=== PATIENT | female | born 1950 | race Caucasian/White ===

== ENCOUNTER 2021-02-27 08:40 | Outpatient (REF) | payer MEDICARE, SELFPAY ==
[2021-02-27 11:50] LABS: Alanine Aminotransferase 12 U/L (0-31); Albumin Level 4.4 g/dL (3.5-5.0); Alkaline Phosphatase 87 U/L (39-117); Anion Gap 12 (12-20); Aspartate Amino Transferase 20 U/L (5-31); Bilirubin Total 0.9 mg/dL (0.0-1.0); Blood Urea Nitrogen 17 mg/dL (9-16); Calcium 9.1 mg/dL (8.4-10.2); Carbon Dioxide 30 mmol/L (22-29); Chloride 103 mmol/L (96-108); Cholesterol 274 mg/dL; Estimated Glomerular Filt Rate 52; Glucose Fasting 101 mg/dL (60-99); HDL Cholesterol 69 mg/dL; LDL Cholesterol Calculated 190 mg/dl; Potassium 4.5 mmol/L (3.3-5.1); Sodium 140 mmol/L (135-145); Triglycerides 76 mg/dL
[2021-02-27 12:14] LABS: Free T4 (Free Thyroxine) 1.14 ng/dL (0.71-1.85); Thyroid Stimulating Hormone 3.59 uIU/mL (0.32-4.0)
== END 2021-02-27 08:41 | disposition home or self-care (01) ==
LOC: HO.MANLDS 08:40
PROVIDERS: PCP Internal Medicine; Visit Provider Internal Medicine
DX: E78.00 Pure hypercholesterolemia, unspecified (principal); I10 Essential (primary) hypertension; E03.9 Hypothyroidism, unspecified
CPT/HCPCS: 36415; 80053; 80061; 84439; 84443

== ENCOUNTER 2021-08-28 09:37 | Outpatient (REF) | payer MEDICARE, SELFPAY ==
[2021-08-28 11:32] LABS: Alanine Aminotransferase 14 U/L (0-31); Albumin Level 4.3 g/dL (3.5-5.0); Alkaline Phosphatase 87 U/L (39-117); Anion Gap 15 (12-20); Aspartate Amino Transferase 22 U/L (5-31); Bilirubin Total 0.9 mg/dL (0.0-1.0); Blood Urea Nitrogen 14 mg/dL (9-16); Calcium 9.1 mg/dL (8.4-10.2); Carbon Dioxide 25 mmol/L (22-29); Chloride 105 mmol/L (96-108); Cholesterol 204 mg/dL; Estimated Glomerular Filt Rate 52; Glucose Fasting 106 mg/dL (60-99); HDL Cholesterol 66 mg/dL; LDL Cholesterol Calculated 122 mg/dl; Potassium 4.4 mmol/L (3.3-5.1); Sodium 141 mmol/L (135-145); Total Protein 6.8 g/dL (6.5-8.0); Triglycerides 80 mg/dL
[2021-08-28 11:54] LABS: Free T4 (Free Thyroxine) 1.27 ng/dL (0.71-1.85)
== END 2021-08-28 09:38 | disposition home or self-care (01) ==
LOC: HO.MANLDS 09:37
PROVIDERS: PCP Internal Medicine; Visit Provider Internal Medicine
DX: E78.00 Pure hypercholesterolemia, unspecified (principal); I10 Essential (primary) hypertension; E03.9 Hypothyroidism, unspecified; R73.01 Impaired fasting glucose
CPT/HCPCS: 36415; 80053; 80061; 84439; 84443

== ENCOUNTER 2022-01-24 09:17 | Outpatient (REF) | payer MEDICARE, SELFPAY ==
[2022-01-24 11:15] LABS: Estimated Average Glucose 103 mg/dL; Hemoglobin A1c % 5.2 %
[2022-01-24 11:32] LABS: Alanine Aminotransferase 20 U/L (0-31); Albumin Level 4.3 g/dL (3.5-5.0); Alkaline Phosphatase 82 U/L (39-117); Anion Gap 11 (12-20); Aspartate Amino Transferase 20 U/L (5-31); Blood Urea Nitrogen 14 mg/dL (9-16); Calcium 9.2 mg/dL (8.4-10.2); Carbon Dioxide 28 mmol/L (22-29); Chloride 102 mmol/L (96-108); Cholesterol 203 mg/dL; Estimated Glomerular Filt Rate 51; Glucose Fasting 98 mg/dL (60-99); HDL Cholesterol 66 mg/dL; LDL Cholesterol Calculated 121 mg/dl; Potassium 4.2 mmol/L (3.3-5.1); Sodium 137 mmol/L (135-145); Total Protein 6.8 g/dL (6.5-8.0); Triglycerides 84 mg/dL
[2022-01-24 11:39] LABS: Free T4 (Free Thyroxine) 1.22 ng/dL (0.71-1.85)
== END 2022-01-24 09:18 | disposition home or self-care (01) ==
LOC: HO.MANLDS 09:17
PROVIDERS: PCP Internal Medicine; Visit Provider Internal Medicine
DX: E78.00 Pure hypercholesterolemia, unspecified (principal); I10 Essential (primary) hypertension; E03.9 Hypothyroidism, unspecified; R73.01 Impaired fasting glucose
CPT/HCPCS: 36415; 80053; 80061; 83036; 84439; 84443

== ENCOUNTER 2022-05-04 09:06 | Outpatient (REF) | payer MEDICARE, SELFPAY ==
[2022-05-04 11:23] LABS: Estimated Average Glucose 103 mg/dL; Hemoglobin A1c % 5.2 %
[2022-05-04 11:40] LABS: Alanine Aminotransferase 15 U/L (0-31); Albumin Level 4.5 g/dL (3.5-5.0); Alkaline Phosphatase 95 U/L (39-117); Anion Gap 13 (12-20); Aspartate Amino Transferase 22 U/L (5-31); Bilirubin Total 0.5 mg/dL (0.0-1.0); Blood Urea Nitrogen 12 mg/dL (9-16); Calcium 9.2 mg/dL (8.4-10.2); Carbon Dioxide 26 mmol/L (22-29); Chloride 103 mmol/L (96-108); Cholesterol 214 mg/dL; Estimated Glomerular Filt Rate 40; Glucose Fasting 111 mg/dL (60-99); HDL Cholesterol 65 mg/dL; LDL Cholesterol Calculated 132 mg/dl; Potassium 4.4 mmol/L (3.3-5.1); Sodium 138 mmol/L (135-145); Total Protein 7.1 g/dL (6.5-8.0); Triglycerides 89 mg/dL
[2022-05-04 11:46] LABS: Free T4 (Free Thyroxine) 1.27 ng/dL (0.71-1.85); Thyroid Stimulating Hormone 2.22 uIU/mL (0.32-4.0)
== END 2022-05-04 09:07 | disposition home or self-care (01) ==
LOC: HO.MANLDS 09:06
PROVIDERS: Visit Provider Internal Medicine
DX: E78.00 Pure hypercholesterolemia, unspecified (principal); I10 Essential (primary) hypertension; E03.9 Hypothyroidism, unspecified; R73.01 Impaired fasting glucose
CPT/HCPCS: 36415; 80053; 80061; 83036; 84439; 84443

== ENCOUNTER 2022-12-24 | Outpatient (REF) | payer MEDICARE, SELFPAY ==
[2022-12-24 10:25] LABS: MANUAL DIFF FLAG NO
[2022-12-24 10:28] LABS: Basophils Absolute Auto 0.1 X10*3/uL (0.0-0.2); Basophils Percent Auto 1.1 % (0-2); Eosinophils Absolute Auto 0.1 X10*3/uL (0.0-0.4); Eosinophils Percent Auto 1.8 % (0-4); Hematocrit 41.5 % (37.0-47.0); Imm Gran Abs Auto 0.02 X10*3/uL (0.00-0.03); Imm Gran Pct Auto 0.5 % (0.0-0.4); Lymphocytes Absolute Auto 1.1 X10*3/uL (1.2-4.9); Lymphocytes Percent Auto 25.7 % (20-40); Mean Corpuscular HGB Conc 33.7 g/dl (31.0-35.0); Mean Corpuscular Hemoglobin 33.2 pg (27.0-33.0); Mean Corpuscular Volume 98.3 fL (80.0-98.0); Mean Platelet Volume 9.5 fL (9.4-12.3); Monocytes Absolute Auto 0.6 X10*3/uL (0.1-1.2); Monocytes Percent Auto 13.1 % (2-11); Neutrophils Absolute Auto 2.5 x10*3/uL (2.0-8.3); Neutrophils Percent Auto 57.8 % (45-73); Platelet Count 236 X10*3/uL (160-400); Red Blood Count 4.22 X10*6/uL (4.20-5.50); White Blood Count 4.4 X10*3/uL (4.8-10.8)
[2022-12-24 11:07] LABS: Estimated Average Glucose 111 mg/dL; Hemoglobin A1c % 5.5 %
[2022-12-24 11:31] LABS: Alanine Aminotransferase 13 U/L (0-31); Albumin Level 4.3 g/dL (3.5-5.0); Alkaline Phosphatase 80 U/L (39-117); Anion Gap 10 (12-20); Aspartate Amino Transferase 16 U/L (5-31); Bilirubin Total 1.2 mg/dL (0.0-1.0); Blood Urea Nitrogen 18 mg/dL (9-16); Calcium 9.3 mg/dL (8.4-10.2); Carbon Dioxide 30 mmol/L (22-29); Chloride 103 mmol/L (96-108); Cholesterol 218 mg/dL; Estimated Glomerular Filt Rate 52; Glucose Fasting 101 mg/dL (60-99); HDL Cholesterol 74 mg/dL; LDL Cholesterol Calculated 126 mg/dl; Potassium 4.2 mmol/L (3.3-5.1); Sodium 139 mmol/L (135-145); Total Protein 6.8 g/dL (6.5-8.0); Triglycerides 91 mg/dL
[2022-12-24 11:50] LABS: Vitamin D 25-OH Total 38.3 ng/mL (>30)
== END 2022-12-24 00:01 ==
LOC: HO.MANLDS
PROVIDERS: Visit Provider Internal Medicine
DX: E78.00 Pure hypercholesterolemia, unspecified (principal); R73.01 Impaired fasting glucose
CPT/HCPCS: 36415; 80053; 80061; 82306; 83036; 85025

== ENCOUNTER 2023-01-22 10:04 | Outpatient (REF) | payer MEDICARE, SELFPAY ==
[2023-01-22 13:43] LABS: Free T4 (Free Thyroxine) 1.31 ng/dL (0.71-1.85); Thyroid Stimulating Hormone 2.19 uIU/mL (0.32-4.0)
== END 2023-01-22 10:05 | disposition home or self-care (01) ==
LOC: HO.MANLDS 10:04
PROVIDERS: Visit Provider Internal Medicine
DX: E03.9 Hypothyroidism, unspecified (principal)
CPT/HCPCS: 36415; 84439; 84443

== ENCOUNTER 2023-07-02 08:57 | Outpatient (REF) | payer MEDICARE, OTHER, SELFPAY ==
[2023-07-02 13:27] LABS: MANUAL DIFF FLAG NO
[2023-07-02 13:37] LABS: Basophils Absolute Auto 0.1 X10*3/uL (0.0-0.2); Basophils Percent Auto 1.4 % (0-2); Eosinophils Absolute Auto 0.1 X10*3/uL (0.0-0.4); Eosinophils Percent Auto 1.6 % (0-4); Hematocrit 41.6 % (37.0-47.0); Hemoglobin 13.6 g/dl (12.0-16.0); Imm Gran Abs Auto 0.01 X10*3/uL (0.00-0.03); Imm Gran Pct Auto 0.2 % (0.0-0.4); Lymphocytes Absolute Auto 0.9 X10*3/uL (1.2-4.9); Lymphocytes Percent Auto 21.1 % (20-40); Mean Corpuscular HGB Conc 32.7 g/dl (31.0-35.0); Mean Corpuscular Hemoglobin 32.5 pg (27.0-33.0); Mean Corpuscular Volume 99.3 fL (80.0-98.0); Mean Platelet Volume 9.6 fL (9.4-12.3); Monocytes Absolute Auto 0.5 X10*3/uL (0.1-1.2); Monocytes Percent Auto 11.5 % (2-11); Neutrophils Absolute Auto 2.7 x10*3/uL (2.0-8.3); Neutrophils Percent Auto 64.2 % (45-73); Platelet Count 256 X10*3/uL (160-400); Red Blood Count 4.19 X10*6/uL (4.20-5.50); Red Cell Distribution Width 12.2 % (11.0-16.0); White Blood Count 4.3 X10*3/uL (4.8-10.8)
[2023-07-02 14:35] LABS: Estimated Average Glucose 103 mg/dL; Hemoglobin A1C 117.8779 umol/L; Hemoglobin A1c % 5.2 % (<6.0)
[2023-07-02 15:08] LABS: Alanine Aminotransferase 12 U/L (0-31); Albumin Level 4.3 g/dL (3.5-5.0); Alkaline Phosphatase 76 U/L (39-117); Anion Gap 10 (12-20); Aspartate Amino Transferase 21 U/L (5-31); Bilirubin Total 0.8 mg/dL (0.0-1.0); Blood Urea Nitrogen 15 mg/dL (9-16); Calcium 9.6 mg/dL (8.4-10.2); Carbon Dioxide 29 mmol/L (22-29); Chloride 105 mmol/L (96-108); Cholesterol 209 mg/dL (<200); Estimated Glomerular Filt Rate 53; Glucose Random 99 mg/dL (60-115); HDL Cholesterol 72 mg/dL (>40); LDL Cholesterol Calculated 120 mg/dL (<100); Potassium 4.3 mmol/L (3.3-5.1); Sodium 140 mmol/L (135-145); Triglycerides 88 mg/dL (<150)
[2023-07-02 15:09] LABS: Vitamin D 25-OH Total 56.1 ng/mL (>30)
== END 2023-07-02 08:58 | disposition home or self-care (01) ==
LOC: HO.MANLDS 08:57
PROVIDERS: Visit Provider Internal Medicine
DX: E78.00 Pure hypercholesterolemia, unspecified (principal); R73.01 Impaired fasting glucose; E55.9 Vitamin D deficiency, unspecified
CPT/HCPCS: 36415; 80053; 80061; 82306; 83036; 85025

== ENCOUNTER 2023-12-30 08:58 | Outpatient (REF) | payer MEDICARE, OTHER, SELFPAY ==
[2023-12-30 13:10] LABS: MANUAL DIFF FLAG NO
[2023-12-30 13:46] LABS: Basophils Absolute Auto 0.1 X10*3/uL (0.0-0.2); Basophils Percent Auto 0.9 % (0-2); Eosinophils Absolute Auto 0.2 X10*3/uL (0.0-0.4); Eosinophils Percent Auto 3.2 % (0-4); Hematocrit 42.4 % (37.0-47.0); Hemoglobin 13.9 g/dl (12.0-16.0); Imm Gran Abs Auto 0.01 X10*3/uL (0.00-0.03); Imm Gran Pct Auto 0.2 % (0.0-0.4); Lymphocytes Percent Auto 18.1 % (20-40); Mean Corpuscular HGB Conc 32.8 g/dl (31.0-35.0); Mean Corpuscular Hemoglobin 32.8 pg (27.0-33.0); Mean Platelet Volume 9.7 fL (9.4-12.3); Monocytes Absolute Auto 0.6 X10*3/uL (0.1-1.2); Monocytes Percent Auto 10.6 % (2-11); Neutrophils Absolute Auto 3.8 x10*3/uL (2.0-8.3); Platelet Count 235 X10*3/uL (160-400); Red Blood Count 4.24 X10*6/uL (4.20-5.50); Red Cell Distribution Width 12.6 % (11.0-16.0); White Blood Count 5.6 X10*3/uL (4.8-10.8)
[2023-12-30 14:36] LABS: Alanine Aminotransferase 18 U/L (0-31); Albumin Level 4.3 g/dL (3.5-5.0); Alkaline Phosphatase 84 U/L (39-117); Anion Gap 11 (12-20); Aspartate Amino Transferase 21 U/L (5-31); Bilirubin Total 0.7 mg/dL (0.0-1.0); Blood Urea Nitrogen 18 mg/dL (9-16); Calcium 9.5 mg/dL (8.4-10.2); Carbon Dioxide 28 mmol/L (22-29); Chloride 105 mmol/L (96-108); Cholesterol 226 mg/dL (<200); Estimated Glomerular Filt Rate 57; Glucose Random 101 mg/dL (60-115); HDL Cholesterol 75 mg/dL (>40); LDL Cholesterol Calculated 133 mg/dL (<100); Potassium 4.4 mmol/L (3.3-5.1); Sodium 140 mmol/L (135-145); Thyroid Stimulating Hormone 2.06 uIU/mL (0.32-4.0); Total Protein 7.3 g/dL (6.5-8.0); Triglycerides 91 mg/dL (<150); Vitamin D 25-OH Total 39.1 ng/mL (>30)
== END 2023-12-30 08:59 | disposition home or self-care (01) ==
LOC: HO.MANLDS 08:58
PROVIDERS: Visit Provider Internal Medicine
DX: I10 Essential (primary) hypertension (principal); E78.00 Pure hypercholesterolemia, unspecified; E03.9 Hypothyroidism, unspecified
CPT/HCPCS: 36415; 80053; 80061; 82306; 84443; 85025

== ENCOUNTER 2025-03-24 07:56 | Outpatient (REF) | payer MEDICARE, OTHER, SELFPAY ==
[2025-03-24 14:03] LABS: Thyroid Stimulating Hormone 0.48 uIU/mL (0.32-4.0)
== END 2025-03-24 07:57 | disposition home or self-care (01) ==
LOC: HO.MANLDS 07:56
PROVIDERS: Visit Provider Internal Medicine
DX: E03.9 Hypothyroidism, unspecified (principal)
CPT/HCPCS: 36415; 84443

== ENCOUNTER 2025-03-31 16:01 | Outpatient (REF) | payer MEDICARE, OTHER, SELFPAY ==
[2025-04-01 17:29] LABS: Lyme Abs Screen <0.90 index
[2025-04-01 21:58] LABS: A. Phagocytphilium DNA,RT-PCR NOT DETECTED (NOT DETECTED); Babesia Microti DNA, RT-PCR NOT DETECTED (NOT DETECTED); Borrelia Miyamotoi,DNA RT-PCR NOT DETECTED (NOT DETECTED); E.Chaffeensis DNA RT-PCR NOT DETECTED (NOT DETECTED); Lyme(Borrelia ssp)DNA RT-PCR NOT DETECTED (NOT DETECTED)
== END 2025-03-31 16:02 | disposition home or self-care (01) ==
LOC: HO.MANLDS 16:01
PROVIDERS: Visit Provider Internal Medicine
DX: T14.8XXA Other injury of unspecified body region, initial encounter (principal); W57.XXXA Bitten or stung by nonvenomous insect and other nonvenomous arthropods, initial encounter; Y93.9 Activity, unspecified; Y92.9 Unspecified place or not applicable; Y99.9 Unspecified external cause status
CPT/HCPCS: 36415; 86617; 86618; 87468; 87469; 87478; 87484; 87798

== ENCOUNTER 2025-07-28 19:10 | Outpatient (REF) | payer MEDICARE, OTHER, SELFPAY ==
[2025-07-28 19:13] LABS: MANUAL DIFF FLAG NO
--- OUTSIDE RECORDS SUMMARY | 2025-07-28 19:13 | XMS_ITS | Encounter Summary ---
Author Organization [facility] Address [address] [place] [address] [place] [phone] Phone Care Team Providers Care Annual Giving Director Name Role Phone Benjy Charlton Primary Care Provider [phone] Jessica Lim MD Unavailable [phone] Zoltan Benjy Horta DO Unavailable Encounter Details Date Type Department Care Team (Latest Contact Info) Description 08/26/2018 Transcribe Orders [facility] [address] [place] [id number] Fito Andersen MD [address] [place] [id number] [email or web address] Myxedema heart disease (Primary Dx) Social History Tobacco Use Types Packs/Day Years Used Date Smoking Tobacco: Never Smokeless Tobacco: Never Comments No Sex and Gender Information Value Date Recorded Sex Assigned at Not on file Legal Sex Female 10:05 PM EDT Gender Identity Not on file Sexual Orientation Not on file documented as of this encounter Plan of Treatment Upcoming Encounters Date Type Department Care Team (Late st Contact Info) Description 04/20/2025 Procedure Pass [address] [address] 04/11/2026 9:15 AM EDT Appointment [address] [address] Jessica Lim MD [address] [place] [id number] 04/19/2026 10:00 AM EDT Office Visit [facility] [address] [place] [address] Jessica Lim MD [address] [place] [id number] documented as of this encounter Results * TSH (08/26/2018 10:01 AM EDT) TSH 2.91 0.27 - 4.20 uIU/mL [facility] Blood 08/26/2018 10:0 1 AM EDT 08/26/2018 10:05 AM EDT us Fito Andersen MD LAB BLOOD ORDERABLES Final Result [address] [address] documented in this encounter Visit Diagnoses Diagnosis Myxedema heart disease- Primary Unspecified hypothyroidism documented in this encounter Additional Health Concerns Infection Onset Date Last Indicated Resolved Time CoV-Exposed Comment:Recent close contact 11/07/2020 11/07/2020 11/21/2020 1:24 AM EST documented as of this encounter Care Teams Annual Giving Director Relationship Specialty Start Date End Date Benjy Charlton DO PCP - General 08/15/17 Jessica Lim MD [address] [place] [address] Primary Oncologist Medical Oncology 03/10/18 Benjy Charlton DO [address] [place] [id number] Insurance Assigned Provider 08/06/20 09/07/23 documented as of this encounter Additional Source Comments The information contained in this document represents components of the legal health record. It is not the complete legal health record.[facility]
--- OUTSIDE RECORDS SUMMARY | 2025-07-28 19:13 | XMS_ITS | Data Portability ---
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 REVIEW OF PRIOR EXTERNAL NOTES/RESULTS, ORDERING OF TEST(S) CATEGORY 2. 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 MODERATE MUST MEET 2 OUT OF 3 ELEMENTS: PROBLEMS, DATA OR RISK ELEMENT 1: PROBLEMS ADDRESSED 1 OR MORE CHRONIC ILLNESS WITH EXACERBATION OR 2 OR MORE STABLE CHRONIC ILLNESSES OR 1 UNDIAGNOSED NEW PROBLEM OR 1 ACUTE ILLNESS W/SYMPTOMS OR 1 ACUTE COMPLICATED INJURY ELEMENT 2: DATA MUST MEET 1 OF 3 CATEGORIES CATEGORY 1: REVIEW OF PRIOR EXTERNAL NOTES, REVIEW OF RESULTS, ORDERING OF EACH TEST, ASSESSMENT REQUIRING INDEPENDENT HISTORIAN OR CATEGORY 2: INDEPENDENT INTERPRETATION OF TESTS BY ANOTHER PHYSICIAN OR SPECIALIST OR CATEGORY 3: DISCUSSION OF MGT OR TEST INTERPRETATION W/EXTERNAL PHYSICIAN OR SPECIALIST ELEMENT 3: RISK RISK OF COMPLICATIONS AND/OR MORBIDITY OR MORTALITY OF PATIENT MANAGEMENT PROVIDER MUST THOROUGHLY DOCUMENT EACH ELEMENT THAT IS COVERED Not available 07/22/2024 12:15:49 01/13/2025 01/13/2025 [id number] [place] [id number]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 MODERATE MUST MEET 2 OUT OF 3 ELEMENTS: PROBLEMS, DATA OR RISK ELEMENT 1: PROBLEMS ADDRESSED 1 OR MORE CHRONIC ILLNESS WITH EXACERBATION OR 2 OR MORE STABLE CHRONIC ILLNESSES OR 1 UNDIAGNOSED NEW PROBLEM OR 1 ACUTE ILLNESS W/SYMPTOMS OR 1 ACUTE COMPLICATED INJURY ELEMENT 2: DATA MUST MEET 1 OF 3 CATEGORIES CATEGORY 1: REVIEW OF PRIOR EXTERNAL NOTES, REVIEW OF RESULTS, ORDERING OF EACH TEST, ASSESSMENT REQUIRING INDEPENDENT HISTORIAN OR CATEGORY 2: INDEPENDENT INTERPRETATION OF TESTS BY ANOTHER PHYSICIAN OR SPECIALIST OR CATEGORY 3: DISCUSSION OF MGT OR TEST INTERPRETATION W/EXTERNAL PHYSICIAN OR SPECIALIST ELEMENT 3: RISK RISK OF COMPLICATIONS AND/OR MORBIDITY OR MORTALITY OF PATIENT MANAGEMENT PROVIDER MUST THOROUGHLY DOCUMENT EACH ELEMENT THAT IS COVERED Not available 01/13/2025 15:05:23 03/31/2025 03/31/2025 Patient presente d to office today for their Medicare Annual Wellness Visit. Education was provided on healthy nutrition, including a diet rich in fruits and vegetables, minimizing simple carbohydrates, salt, and saturated fats. Encouraged regular cardiovascular exercise such as walking at least 30 minutes daily, 5 times per week. Emphasized preventive health measures and educated pt on fall prevention and community-based lifestyle interventions to help reduce health risks and promote healthy living. Not available 03/23/2025 14:18:15 Plan of Treatment Reminders Order Date Submit Date Provider Last Modified By Organization Details Last Modified Time Details Appointments FOLLOW UP 15 2024 01:45P M DR KELLY Not available Not available Not available Lab lipid panel, blood 2024 025 [facility], [address] [place] [address], [place], [address], 03/31/2025 15:58:56 TSH + free T4, serum 2024 025 [facility], [address] [place] [address], [place], [address], 03/31/2025 15:59:32 ehrlichio sis + anaplasmo sis + babesiosi s + borrelia miyamotoi DNA panel, serum, plasma or blood 2024 025 [facility], [address] [place] [address], [address], 04/01/2025 20:47:08 lyme disease igg+igm, serum, reflex western blot 2024 025 [facility], [address] [place] [address], [id number], 04/02/2025 13:56:29 CBC w/ auto diff 2024 025 [facility], [address] [place] [address], [id number], 03/31/2025 15:58:56 CMP, serum or plasma 2024 025 [facility], [address] [place] [address], [id number], 03/31/2025 15:58:57 TSH, serum or plasma 2024 025 [facility], [address] [place] [address], [id number], 03/25/2025 12:15:13 TSH, serum or plasma 2024 025 [facility], [address] [place] [address], [id number], 03/25/2025 12:15:13 TSH + free T4, serum 2023 024 [facility], [address] [place] [address], [address], 01/10/2024 12:18:53 Referral hand surgeon referral 2023 024 velia Carroll MD, [address] [place] [address], [address], 04/10/2024 08:42:44 dermatolo gist referral 2023 024 velia Cho MD, [address], [place], [address], 04/10/2024 08:42:45 Procedures None recorded. Surgeries None recorded. Imaging MAMMO, screening , digital, bilateral 2024 [facility] (Screening Mammos, 6-Mos F-Up, Breast Procedures), [address] [place] [address], [address], 04/28/2025 08:43:17 bone density 2024 025 [facility] - Outpatient Imaging Central Scheduling (Not Breast), [address] [place] [address], [id number], 04/14/2025 09:22:38 XR, shoulder, 2 or more view 2023 024 [facility] Not available 07/29/2024 09:18:02 Medication Orders levothyro xine 88 mcg tablet 2024 025 [facility] #[id number], [address], [place], [id number], 01/13/2025 15:14:31 propranol ol ER 60 mg capsule,2 4 hr,extend ed release 2023 024 [facility] #08326, [address], [place], [id number], 04/07/2024 16:21:01 levothyro xine 75 mcg tablet 2023 025 [facility] #90285, [address], [place], [id number], 01/13/2025 15:10:07 simvastat in 10 mg tablet 2023 024 [facility] #39541, [address], [place], [id number], 01/10/2024 12:13:49 propranol ol ER 60 mg capsule,2 4 hr,extend ed release 2023 024 [facility] #64244, [address], [place], [id number], 01/10/2024 12:13:49 Patient TargetsNo targets recorded. Patient Instructions Encounter Date Encounter Id Patient Instructions Last Modified By Organization Details Last Modified Time 07/22/2024 [id number] hypothyroidism: care instructions Not available 07/22/2024 12:16:11 01/13/2025 [id number] prediabetes: car e instructions Not available 01/13/2025 15:14:25 high blood pressure: care instructions Not available 01/13/2025 15:14:25 learning about high blood pressure Not available 01/13/2025 15:14:25 hypothyroidism: care instructions Not available 01/13/2025 15:14:25 03/31/2025 [id number] tick bite: care instructions Not available 03/31/2025 15:57:30 advance care planning: care instructions Not available 03/31/2025 15:57:30 Discussed and explained advance directives such as standard forms to the . Face to face discussion lasted for a duration of ___ minutes. 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 [address], [address], 07/30/2024 21:29:22 09/15/20 24 09/14/2024 MRI, ben zuleika, w/o contr ast No observ ation record ed. [email or web address] [address], [place], [address], 09/18/2024 11:53:51 Result Notes None recorded. 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 145951327 Active 2017 Ayesha serrano [facility] 5 13:34:58 Impaired fasting glycemia 215890444 Completed 201707/08/2023 Ayesha serrano [facility] 5 13:34:58 Osteopen ia 032464997 Active 2017 Ayesha serrano [facility] 5 13:34:58 Hypercho lesterol emia 80664344 Active 2017 Ayesha serrano [facility] 5 13:34:58 Bunion 089971409 Active 2017 Ayesha serrano [facility] 5 13:35:06 Migraine 25815419 Active 2022 Ayesha serrano [facility] 5 13:35:06 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 749956486 Active 2022 Ayesha serrano [facility] 5 13:34:58 Raynaud' s disease 166738500 Active 2022 Ayesha serrano [facility] 5 13:34:58 Headache 25276159 [facility] 13:[facility]06 Impaired fasting glycemia 718294224 Active 2022 [facility] 5 13:34:58 Acute sinusiti s 11103659 Active 2023 [facility] 5 13:35:06 Acquired trigger finger of right middle finger 78109458361 9105 Active 2023 [facility] 5 13:34:58 Squamous cell carcinom a of skin 696120273 Active 2023 [facility] 5 13:34:58 Pain of right shoulder joint 75628875162 245833 Active 2023 [facility] 5 13:35:06 Cough 34564478 Active 2024 [facility] 5 13:35:06 Right rotator cuff syndrome 86441841615 9109 Active 2024 Benjy Kelly, DO [address] [place] [address], [phone] 5 15:04:49 Problem Notes None recorded. Medical Equipment None Reported. Allergies Allergen ID Allergen Name Allergen Category Reaction Reaction Severity Criticality Documentation Date Start Date Code Code System Note Provider Name and Address Organization Details Recorded Time 3211 etodolac medicatio n hives severe Not available 05/18/2019 45097 RxNorm Aarti Nicholson [facility] 9 13:42:49 3997 Macrobid medicatio n hives Not available Not available 05/25/2020 66554 1 RxNorm [facility] 0 10:26:05 3998 shellfish derived food,medi cation Not available Not available Not available 05/25/2020 Swell ing, throa t tight en[facility] 0 10:27:08 434 penicilli n V Not available Not available Not available Not available 01/01/2018 7984 RxNorm Aarti serrano [facility] 8 14:41:25 435 diflunisa l medicatio n Not available Not available Not available 01/01/2018 3393 RxNorm Aarti serrano [facility] Internal [facility] 8 14:41:54 Medications Name Sig Start Date Stop Date Status Note LastModified by Organization Details LastModified Time anastrozole 1 mg tablet 03/26 completed Not Available Not Available Not Available atorvastati n 10 mg tablet TAKE 1 TABLET BY MOUTH ONCE DAILY 03/06 completed Not Available Not Available Not Available azithromyci n 250 mg tablet TAKE 2 TABLETS (500 MG) BY ORAL ROUTE ONCE DAILY FOR 1 DAY THEN 1 TABLET (250 MG) BY ORAL ROUTE ONCE DAILY FOR 4 DAYS 01/13 completed Not Available Not Available Not Available benzonatate 200 mg capsule TAKE 1 CAPSULE BY MOUTH THREE TIMES DAILY FOR 10 DAYS NEEDED 01/13 completed Not Available Not Available Not Available meloxicam 15 mg tablet TAKE 1 TABLET BY MOUTH EVERY DAY AFTER MEALS 03/31 completed Not Available Not Available Not Available propranolol ER 60 mg capsule,24 hr,extended release TAKE 1 CAPSULE BY MOUTH EVERY DAY 2024 active Not Available Not Available Not Avai lable simvastatin 10 mg tablet TAKE 1 TABLET BY MOUTH EVERY DAY active Not Available Not Available No t Available sulfamethox azole 800 mg-trimetho prim 160 mg tablet 05/14 completed Not Available Not Available Not Available etodolac ER 500 mg tablet,exte nded release 24 hr Take 1 tablet every day by oral route for 10 days. 06/03 completed Not Available Not Available Not Available levothyroxi ne 75 mcg tablet TAKE 1 TABLET BY MOUTH EVERY DAY SATURDAY THROUGH SATURDAY TAKE ONE-HALF TABLET BY MOUTH ON 01/13 completed Not Available Not Available Not Available levothyroxi ne 88 mcg tablet TAKE 1 TABLET BY MOUTH EVERY DAY active Not Available Not Available No t Available levothyroxi ne 50 mcg tablet 03/26 completed Not Available Not Available Not Available erythromyci n 5 mg/gram (0.5 %) eye ointment APPLY 1/2 INCH IN LEFT EYE FOUR TIMES DAILY FOR 5 DAYS 12/31 completed Not Available Not Available Not Available oseltamivir 75 mg capsule 03/26 completed Not Available Not Available Not Available methylpredn isolone 4 mg tablets in a dose pack FOLLOW PACKAGE DIRECTION S 03/31 completed Not Available Not Available Not Available doxycycline hyclate 100 mg tablet TAKE 1 TABLET BY MOUTH TWICE DAILY FOR 14 DAYS 08/29 completed Not Available Not Available Not Available Vitamin D3 400 units daily active Not Available Not Available No t Available COVID-19 test specimen collection USE DIRECTED 09/04 completed Not Available Not Available Not Available Vitals Date Recorded Body height Body mass index (BMI) Body weight Heart rate Oxygen saturation Oxygen saturation in Arterial blood by Pulse oximetry Systolic And Diastolic Provider Name and Address Organization Details Last Updated DateTime 5 168.28 cm 28.8 kg/m2 96485.1 9 g 75 /min 98 % 98 % 156/92 mm[Hg] Ayesha Ortega [facility] 5 14:47:52 Date Recorded Body height Body mass index (BMI) Body weight Oxygen saturation Oxygen saturation in Arterial blood by Pulse oximetry Heart rate Systolic And Diastolic Provider Name and Address Organization Details Last Updated DateTime 5 168.28 cm 28.9 kg/m2 03900.4 2 g 98 % 98 % 84 /min 142/90 mm[Hg] Kassidy Montalvo [facility] 5 15:44:58 Date Recorded Body height Body mass index (BMI) Body weight Heart rate Oxygen saturation Oxygen saturation in Arterial blood by Pulse oximetry Systolic And Diastolic Provider Name and Address Organization Details Last Updated DateTime 4 168.28 cm 28.8 kg/m2 30216.6 3 g 80 /min 97 % 97 % 138/80 mm[Hg] Jes Edge [facility] 4 16:10:35 Date Recorded Systolic And Diastolic Provider Name and Address Organization Details Last Updated DateTime 07/22/2024 112/76 mm[Hg] Diane Reyes [address] [place] [address], [phone], [facility] 07/22/2024 12:07:30 Date Recorded Body height Body mass index (BMI) Body weight Heart rate Oxygen saturation Oxygen saturation in Arterial blood by Pulse oximetry Systolic And Diastolic Provider Name and Address Organization Details Last Updated DateTime 4 168.28 cm 28.7 kg/m2 41396.0 3 g 68 /min 97 % 97 % 140/80 mm[Hg] Jes Edge [facility] 4 11:47:59 Social History Question Answer Notes LastModified by Organizat ion Details LastModified Time Tobacco Smoking Status Former Smoker Not Available [employer] 08/30/2020 03:36:24 What Was The Date Of Your Most Recent Tobacco Screening? 03/31/2025 Information not available 03/31/2025 Sex: Unknown Functional Status Question Answer Note LastModified by Organization D etails LastModified Time Do you or have you ever used any other forms of tobacco or nicotine? No Information not available 12/31/2022 Mental Status None recorded. Family History Nothing Reported. Medical History No medical history recorded. Gynecological HistoryNo gynecological history recorded. Obstetrics History GPAL:G 0 P 0 0 0 0 Immunizations Vaccine Type Date Status Note Provider Nam e and Address Organization Details Recorded Time COVID-19, mRNA, LNP-S, PF, 30 mcg/0.3 mL dose 06/08/2022 completed Diane Reyes O [address] [place], [address], [facility] 06/09/2022 14:25:21 COVID-19, mRNA, LNP-S, PF, 30 mcg/0.3 mL dose 12/29/2020 radha serrano [facility] 03/06/2021 10:29:14 COVID-19, mRNA, LNP-S, PF, 30 mcg/0.3 mL dose 01/21/2021 radha serrano [facility] 03/06/2021 10:29:19 Past Encounters Encounter ID Performer Location Encounter Start Date Encounter Closed Date Diagnosis/Indication Diagnosis SNOMED-CT Code Diagnosis ICD10 Code Diagnosis IMO Codes Diagnosis Note [id number] Benjy Kelly [facility] Internal Medicine [address] [facility] [address],[place] [address] 03/26/2018 09:06:49 03/26/2018 09:58:03 Hypercholesterolemia 05549232 E78.00 will begin simvastati n Essential hypertension 68675529 I10 stable on current med [id number] Benjy Kelly [facility] [address] [facility],[place] [address] 06/20/2018 14:43:35 06/20/2018 16:11:56 Epistaxis 66097195 R04.0 minimal [id number] Benjy Kelly [facility] Internal Medicine [address] [facility],[place] [address] 07/23/2018 11:01:22 07/23/2018 12:30:18 Hypercholesterolemia 87816557 E78.00 on simvastati n and LDL came down from 208 to 121 outstandin g Hypothyroidism 58477091 E03.9 on levothyrox has tsh for endocrine next month Essential hypertension 24553591 I10 stable on current med Impaired f asting glycemia 718506148 R73.01 Adult heal th examination 069964905 Z00.00 excellent job good exam no issues Screening for osteoporosis 029245416 Z13.820 just had ion aug Screening mammography 24 024965 Z12.31 done in nov Benjy Kelly [facility] Internal Medicine [address] [facility],[place] [address] 01/19/2019 10:50:05 01/19/2019 11:53:42 Essential hypertension 16095758 I10 stable on current med Atypical chest pain 1025 09949 R07.89 as noted developed after shoveling snow and felt bad the entire day. im worried about subclin cad ekg is nsr with no ischemic changes will send for ETT Hypercholesterolemia 136 38785 E78.00 on simvastati n and LDL came down from 208 to 121 outstandin g but is now having some strange nervous feelings and on edge since being on it.. will have her stop it. Benjy Kelly [facility] Internal Medicine [address] [facility],[place] [address] 02/06/2019 14:02:57 02/06/2019 15:04:15 Essential hypertension 55316985 I10 stable on current med Hypothyroidism 85526036 E03.9 on levothyrox has tsh for endocrine next month Atypical chest pain 1025 70547 R07.89 as noted developed after shoveling snow and felt bad the entire day. im worried about subclin cad ekg is nsr with no ischemic changes and as noted the ETT WAS NEGATIVE and she has a low risk for cad pt informed not to shovel ever again [id number] Benjy Kelly [facility] Medicine [address] [facility] [place] [address] 05/12/2019 11:35:03 05/12/2019 16:27:33 Superficial thrombophlebitis 0813367 I80.9 not taking approp the ibuprofen so will change to diclofenac 50 bid heat elevation will also see her back in 2 weeks and will need to refer to vascular [id number] Benjy Kelly [facility] [address] [facility] [place] [address] 06/03/2019 11:39:30 06/03/2019 12:15:48 Acute urticaria 272489232 L50.9 resolved but secondary to etodolac better with benadryl Thrombophl ebitis of superficial veins of lower leg 544771303 I80.02 will have her use the support stockings and also consider vascular [id number] Benjy Kelly DO [facility] [address] [facility] [place] [address] 07/22/2019 10:51:34 07/22/2019 11:46:51 Impaired fasting glycemia 452228587 R73.01 aic is low at 5 gluc less 100 Hypothyroidism 85262894 E03.9 on levothyrox has tsh at 1.86 Essential hypertension 80791703 I10 stable on current med Hypercholesterolemia 136 25311 E78.00 on simvastati n and LDL came down from 208 to 121 outstandin g but is now having some strange nervous feelings and on edge since being on it.. will have her stop it. [id number] Benjy Kelly [facility] Medicine [address] [facility],[place] [address] 11/04/2019 14:34:45 11/04/2019 15:12:40 Hypercholesterolemia 79811279 E78.00 on simvastati n and LDL came down from 208 to 121 outstandin g but is now having some strange nervous feelings and on edge since being on it.. will have her stop it. Hypothyroidism 79105287 E03.9 on levothyrox has tsh at 1.86 Essential hypertension 55096982 I10 stable on current med [id number] [facility] [address] [facility] [address] 05/25/2020 10:00:23 05/25/2020 12:00:17 Hypercholesterolemia 12053786 E78.00 on simvastati n and LDL came down from 208 to 121 outstandin g but is now having some strange nervous feelings and on edge since being on it.. will have her stop it. Impaired f asting glycemia 385547184 R73.01 aic is low at 5 gluc less 100 Infiltrati ng duct carcinoma of breast 328636768 C50.[address] agarwal [id number] Benjy Kelly [facility] Internal Medicine [address] [facility],[place] [address] 09/26/2020 16:20:16 09/27/2020 08:03:45 Impaired fasting glycemia 388234599 R73.01 aic is low at 5 gluc less 100 Hypothyroidism 42300406 E03.9 on levothyrox has tsh at 1.86 Essential hypertension 25772743 I10 stable on current med Hypercholesterolemia 136 31230 E78.00 on simvastati n and LDL came down from 208 to 121 outstandin g but is now having some strange nervous feelings and on edge since being on it.. will have her stop it. Myalgia ca used by statin 9991454778 6720537 M79.10 in upper arms she will hold her atorvastat in for 2 weeks or less if sx go away she will call with update [id number] Benjy Kelly [facility] [address] [facility],[place] [address] 11/07/2020 09:55:17 11/07/2020 13:36:52 Exposure to SARS-CoV-2 600481553 Z20.822 will call us back on Saturday for more appropriat e testing the patient understand s this and will call back, the patient will call sooner if she develops symptoms [id number] Benjy Kelly [facility] [address] [facility],[place] [address] 03/06/2021 10:24:29 03/06/2021 11:18:05 Impaired fasting glycemia 635016508 R73.01 aic is low at 5 gluc less 100 Hypothyroidism 75675208 E03.9 on levothyrox has tsh at 1.86 lab is excellent Essential hypertension 02537430 I10 stable on current med Hypercholesterolemia 136 96753 E78.00 on simvastati n and LDL came down from 208 to 121 outstandin g but is now having some strange nervous feelings and on edge since being on it.. will have her stop it. Bursitis o f left shoulder 3501931058 85880 M75.52 will tx with meloxicam Pain in left knee 741755 8097 27841 M25.562 could be arthritis or even bakers cyst given the local [id number] Benjy Kelly [facility] Medicine [address] [facility] [place] [address] 09/04/2021 10:03:06 09/04/2021 11:15:00 Impaired fasting glycemia 777880135 R73.01 excellent numbers Hypothyroidism 58752839 E03.9 on levothyrox has tsh at 3.9 lab is excellent Essential hypertension 23430710 I10 stable on current med Hypercholesterolemia 136 34686 E78.00 on simvastati n and LDL to 122 outstandin g . Infiltrati ng duct carcinoma of breast 166941918 C50.[address] agarwal recent mamm0 is normal [id number] Benjy Kelly [facility] Internal Medicine [address] [facility] [address],[place] [address] 05/14/2022 15:09:56 05/14/2022 15:46:22 Infiltrating duct carcinoma of breast 353832697 C50.[address] agarwal recent mamm0 is normal Screening for malignant neoplasm of colon 582124782 Z12.11 did cologuaashley in aug Advance care planning 71 9208186 Z71.89 done Screening mammography 24 339805 Z12.31 done in nov Active or passive immunization 113610492 Z23 patient advised of due vaccines (tdap, pneu 13 & 23, shingles) Essential hypertension 80769332 I10 stable on current med Impaired f asting glycemia 685553321 R73.01 excellent numbers a1c is 5.2 Hypothyroidism 75614342 E03.9 on levothyrox has tsh at 2.2 lab is excellent Hypercholesterolemia 136 75435 E78.00 on simvastati n and LDL to 122 outstandin g . [id number] Benjy Kelly, [facility] Internal Medicine [address] [facility], [place] [address] 11/27/2022 08:08:13 11/28/2022 11:39:54 Essential hypertension 25709121 I10 stable on current med and is good readings at home Hypercholesterolemia 136 51884 E78.00 on simvastati n and LDL to 122 outstandin g . Hypothyroidism 58408351 E03.9 on levothyrox has tsh at 2.2 lab is excellent Impaired f asting glycemia 433692724 R73.01 excellent numbers a1c is 5.2 Infiltrati ng duct carcinoma of breast 211432741 C50.[address] agarwal recent mammo is normal Raynaud's disease 481057 006 I73.00 had this for 15 min and one time occurence white finger with discomfort that occured while in a hockey rinkconser v tx and will follow let me know if recurs Headache 06930603 R51.9 unsure if this is migraine or URI infection , she will chk covid today [id number] Benjy Kelly [facility] Internal Medicine [address] [facility], [place] [address] 12/31/2022 11:46:34 12/31/2022 15:06:13 Essential hypertension 15631728 I10 stable on current med and is good readings at home Impaired f asting glycemia 829196544 R73.01 excellent numbers a1c is 5.5 Hypothyroidism 24067922 E03.9 on levothyrox has tsh at 2.2 lab is excellent Infiltrati ng duct carcinoma of breast 472654325 C50.[address] agarwal this is 10 yrs!!!!!! [id number] Benjy Kelly [facility] Internal Medicine [address] [facility] [address],[place] [address] 07/08/2023 10:51:38 07/08/2023 12:00:41 Essential hypertension 52440901 I10 stable on current med and is good readings at home Hypercholesterolemia 136 44248 E78.00 on simvastati n and LDL to 120 outstandin g . 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 [id number] Benjy Kelly [facility] Internal Medicine [address] [facility] [address],[place] [address] 01/10/2024 08:13:58 01/10/2024 14:24:18 Essential hypertension 48915065 I10 stable on current med and is good readings at home Hypercholesterolemia 136 42059 E78.00 on simvastati n and LDL to 120 outstandin g . 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 [facility] [id number] Benjy Kelly [facility] Internal Medicine [address] [facility],[place] [address] 07/22/2024 11:36:36 07/22/2024 12:26:46 Depression screening 973618648 Z13.31 neg Essential hypertension 79061621 I10 stable on current med and is good readings at home Hypothyroidism 90611839 E03.9 on levothyrox has tsh lab is excellent Pain of ri ght shoulder joint 6016746261 6282661 M25.511 [id number] Benjy Kelly [facility] Internal Medicine [address] [facility],[place] [address] 01/13/2025 14:29:10 01/13/2025 15:20:32 Depression screening 814131489 Z13.31 neg Essential hypertension 09960444 I10 bp is elevated at 150's/90's will keep and eye on it at home and let me know if running high Hypothyroidism 89794939 E03.9 on levothyrox has tsh lab is elevated and Impaired f asting glycemia 214033268 R73.01 excellent numbers a1c is 5.2 so we will remove this diagnosis from list and make it historical Pain of ri ght shoulder joint 0308075862 7909567 M25.511 did well with wilma inj and PT for her rotator [id number] Benjy Kelly [facility] Internal Medicine [address] [facility],[address] [place] [employer] [place] [address] 03/31/2025 15:35:44 03/31/2025 16:46:17 Screening for cardiovascular system disease 988151552 Z13.6 excellent job good exam no issues Screening for malignant neoplasm of colon 725263076 Z12.11 did cologuard in aug Screening for osteoporosis 649717329 Z13.820 just had ion may Screening mammography 24 452720 Z12.31 done in nov Essential hypertension 13139543 I10 bp is elevated at 150's/90's will keep and eye on it at home and let me know if running high Hypercholesterolemia 136 57224 E78.00 on simvastati n and LDL to 120 outstandin g . Hypothyroidism 58289148 E03.9 on levothyrox has tsh lab is better and is fine feels well but having some fatigue Well adult 085342381 Z00 .00 09701560 excellent job good exam no issues Tick bite 22842039 W57.X XXA 23073446 fatigue is bad some arthralgia Health Concerns Section Related Observation LastModified by Organization Detai ls LastModified Time None Recorded Concern Status LastModified by Organization Details LastModified Time None Recorded Advance Directives Directive None Recorded Payers Insurance Date Sequence Insurance Name Policy Number Policy Dixon Covered Member ID Dixon Member ID Guarantor Name 07/26/2023 2 UNSPECIFIED REMIT PAYOR Kira Barreto 01/13/2025 2 [facility] - MEDICARE PREFERRED (MEDICARE REPLACEMENT HMO) [id number] Kira Barreto [id number] Kira Barreto 03/28/2025 1 MEDICARE B-[place]: [facility] [employer] Kira Barreto [id number] Kira Barreto 01/13/2025 2 [facility] - PREFERRED (MEDICARE SUPPLEMENT) [id number] Kira Barreto [id number] Kira Barreto 03/28/2025 2 [facility] Kira Barreto [id number] Kira Barreto Notes Date Note Type Note Provider Name a nd Address Organization Details Recorded Time 4 text/html ROS as noted in the HPI patient is evaluated via tele/video assessment per patient consentduring current pandemic states is doing ok overallreviewed results in detaildid good with Z damaris Benjy Kelly, DO [address] [place] [address], [address] Internal Medicine 01/10/2024 12:15:26 4 text/html ROS as noted in the HPI c/o R hand/wrist pain the patient has been having right wrist/hand painthe patient reports the pain has been going on for 1 mos the patient reports she has [place] hands the patient agreed to f/u with hand surgeon for trigger finger and carpal tunnel needs refills has a new lesion on her chest,hx of squamous cell, needs biopsywill send back to Dr. Cho the patient reports that she has some dizziness, not consistent could be BPtrends around 100/70, could be too lowwill monitor it and get back to the office DARLINE SULLIVAN [address] [place], [address], [facility] Internal Medicine 04/07/2024 16:38:11 4 text/html ROS as noted in the HPI here for rechk and is doing k overallrelates is retiring next mostates is stressed about things at timesc/o right shoulder being very sore Benjy Kelly, DO [address] [place], [address], [facility] Internal Medicine 07/22/2024 12:17:52 5 text/html ROS as noted in the HPI RELATES Has been noted to have a elevated bphad a bloody nose with her recent viral infection from blowing nose so muchneeds rx renewal and needs lab work PRIOR ; here for rechk and is doing k overallrelates is retiring next mostates is stressed about things at timesc/o right shoulder being very sore Benjy Kelly, [address] [place], [address], [facility] 01/13/2025 15:16:04 5 text/html Medicare Annual Wellness VisitReported by PatientSocial/Behavio ral HistoryFor diet and nutrition, patient reportshealthy diet. For fracture risk, patient reportsno history of fractures,no recent explained fracture,no sudden unexplained fractures, andno previous musculoskeletal injuries. For physical activity, patient reportsexercises on a regular basis,recent increase in physical activity, andgood physical condition.Mental Status:For depression risk, patient reportsnever feels sad, empty, or tearful,no loss of interest in activities,no significant changes in weight,no sleep disturbances or insomnia,no agitation,no loss of energy,no feelings of worthlessness or guilt,no thoughts of suicide,no history of depression, andno history of mood disorders. For orientation, patient reportsno disorientation to time,no disorientation to date, andno disorientation to place. For concentration and memory, patient reportsno decreased concentrating ability,no memory lapses or loss, anddoes not forget words. For speech/motor difficulties, patient reportsno speech difficulties,no difficulty expressing formulated concepts,no difficulty with fine manipulative tasks,no difficulty writing/copying,no slowed reaction time, anddoes not knock things over when trying to pick them up.Functional AbilityFor hearing, patient reportsno loss of hearing. For vision, patient reportsno vision problems. For activities of daily living, patient reportsable to bathe with limited or no assistance,able to contol urination and bowels,able to dress with limited or no assistance,able to feed self with limited or no assistance,able to get out of chair or bed with limited or no assistance,able to groom with limited or no assistance, andable to toilet with limited or no assistance. For instrumental activities of daily living, patient reportsable to do house work with limited or no assistance,able to grocery shop with limited or no assistance,able to manage medications with limited or no assistance,able to manage money with limited or no assistance,able to prepare meals with limited or no assistance, andable to use the phone with limited or no assistance. For falls risk assessment, patient reportsno frequent falls while walking,no fall in the past year,no fall since last visit, andno dizziness/vertigo. For home safety, patient reportsno unsafe lashell hazzards,no unsafe stairs,no unsafe gas appliances,working smoke/co detectors,wears protective head gear for biking/high velocity,use of seatbelts,practicing 'safer sex',no vision or hearing loss while driving,no fire arms,has hand bars in the bathroom/shower, andgood lighting in the home. Benjy Kelly, DO [address] [facility], [place], [address], [facility] Internal Medicine 03/31/2025 15:59:45 OBGyn Episode No OBEpisode recorded.
--- OUTSIDE RECORDS SUMMARY | 2025-07-28 19:13 | XMS_ITS | Encounter Summary ---
Author Organization [facility] Address [address] [facility] [address] [place] [address] Phone Care Team Providers Care Environmental Health Manager Name Role Phone Benjy Charlton DO Primary Care Provider [phone] Jessica Lim MD Unavailable [phone] Encounter Details Date Type Department Care Team (Late st Contact Info) Description 04/10/2024 Procedure Pass [address] [address] Social History Tobacco Use Types Packs/Day Years Used Date Smoking Tobacco: Never Smokeless Tobacco: Never Alcohol Use Standard Drinks/Week Comments Yes 0 (1 standard drink = 0.6 oz pur e alcohol) occ Education Answer Date Recorded Are you interested in more education? Not on monse e 02/22/2023 Are you concerned about learning? Not on file 02/22/2023 No 02/22/2023 No 02/22/2023 Digital Access Answer Date Recorded No 03/23/2023 No 03/23/2023 Reliable internet access at home? Not on file 03/23/2023 Device with a working camera? Not on file Comments No Sex and Gender Information Value Date Recorded Sex Assigned at Not on file Legal Sex Female 10:05 PM EDT Gender Identity Not on file Sexual Orientation Not on file documented as of this encounter Plan of Treatment Upcoming Encounters Date Type Department Care Team (Late st Contact Info) Description 04/20/2025 Procedure Pass [address] [address] 04/11/2026 9:15 AM EDT Appointment [address] [place] [address] Jessica iLm MD [address] [place] [address] 04/19/2026 10:00 AM EDT Office Visit [facility] at [address] [address] Jessica Lim MD [address] [place] [address] documented as of this encounter Visit Diagnoses Not on filedocumented in this encounter Care Teams Environmental Health Manager Relationship Specialty Start Date End Date Benjy Charlton DO PCP - General 08/15/17 Jessica Lim MD [address] [place] [address] Primary Oncologist Medical Oncology 03/10/18 documented as of this encounter Additional Source Comments The information contained in this document represents components of the legal health record. It is not the complete legal health record.[facility]
--- OUTSIDE RECORDS SUMMARY | 2025-07-28 19:13 | XMS_ITS | Encounter Summary ---
Author Organization [facility] Address [address] [address] Phone Care Team Providers Care Substation Operator Name Role Phone Benjy Charlton DO Primary Care Provider Jessica Lim MD Unavailable [phone] Encounter Details Date Type Department Care Team (Late Contact Info) Description 04/14/2025 Transcribe Orders Virtual Department [address] [place] [address] Benjy Charlton DO [address] [facility] [place] [address] [place] [address] [email or web address] Breast screening (Primary Dx); Encounter for screening for osteoporosis Social History Tobacco Use Types Packs/Day Years [...] st Contact Info) Description 04/20/[address] [facility], [address] [address] 04/11/2026 9:15 AM EDT Appointment [address] [address] Jessica Lim MD [address] [place] [address] 04/19/2026 10:00 AM EDT Office Visit [facility] at [address] [address] Jessica Lim MD [address] [place] [address] Scheduled Orders Name Type Priority Associated Diagnoses Orde r Schedule DXA Screening Imaging Routine Encounter for screening for osteoporosis Expected: 05/14/2025, Expires: 04/14/2026 documented as of this encounter Visit Diagnoses Diagnosis Breast screening- Primary Breast screening, unspecified Encounter for screening for osteoporosis documented in this encounter Care Teams Substation Operator Relationship Specialty Start Date End Date Benjy Charlton DO PCP - General 08/15/17 Jessica Lim MD [address] [place] [address] Primary Oncologist Medical Oncology 03/10/18 documented as of this encounter Additional Source Comments The information contained in this document represents components of the legal health record. It is not the complete legal health record.[facility]
--- OUTSIDE RECORDS SUMMARY | 2025-07-28 19:13 | XMS_ITS | Encounter Summary ---
Author Organization [facility] Address [address] [place] [address] Phone Care Team Providers Care Crop Specialist Name Role Phone Benjy Charlton DO Primary Care Provider [phone] Jessica Lim MD Unavailable [phone] Benjy Charlton DO Unavailable Encounter Details Date Type Department Care Team (Late st Contact Info) Description 04/10/2022 Procedure Pass [address] [address] Social History Tobacco Use Types Packs/Day Years Used Date Smoking Tobacco: Never Smokeless Tobacco: Never Alcohol Use Standard Drinks/Week Comments Yes 0 (1 standard drink = 0.6 oz pur e alcohol) occ Comments No Sex and Gender Information Value Date Recorded Sex Assigned at Not on file Legal Sex Female 10:05 PM EDT Gender Identity Not on file Sexual Orientation Not on file documented as of this encounter Plan of Treatment Upcoming Encounters Date Type Department Care Team (Late st Contact Info) Description 04/20/2025 Procedure Pass [address] [address] 04/11/2026 9:15 AM EDT Appointment [address] [address] Jessica Lim MD [address] [place] [address] 04/19/2026 10:00 AM EDT Office Visit [facility] [address] [place] [address] Jessica Lim MD [address] [place] [address] [email or web address] documented as of this encounter Visit Diagnoses Not on filedocumented in this encounter Care Teams Crop Specialist Relationship Specialty Start Date End Date Benjy Charlton DO PCP - General 08/15/17 Jessica Lim MD [address] [place] [address] Primary Oncologist Medical Oncology 03/10/18 Benjy Charlton DO [address] [place] [address] Insurance Assigned Provider 08/06/20 09/07/23 documented as of this encounter Additional Source Comments The information contained in this document represents components of the legal health record. It is not the complete legal health record.[facility]
--- OUTSIDE RECORDS SUMMARY | 2025-07-28 19:13 | XMS_ITS | Encounter Summary ---
Author Organization [facility] Address [address] [place] [address] Phone Care Team Providers Care Mess Attendant Name Role Phone Benjy Charlton DO Primary Care Provider [phone] Jessica Lim MD Unavailable [phone] Benjy Charlton DO Unavailable Encounter Details Date Type Department Care Team (Late st Contact Info) Description 12/15/2020 Procedure Pass [address] [address] Social History Tobacco Use Types Packs/Day Years [...] st Contact Info) Description 04/20/2025 Procedure Pass [address] [address] 04/11/2026 9:15 AM EDT Appointment [address] [address] Jessica Lim MD [address] [place] [address] [email or web address] 04/19/2026 10:00 AM EDT Office Visit [facility] at [address] [address] Jessica Lim MD [address] [place] [address] [email or web address] documented as of this encounter Visit Diagnoses Not on filedocumented in this encounter Care Teams Mess Attendant Relationship Specialty Start Date End Date Benjy Charlton DO PCP - General 08/15/17 Jessica Lim MD [address] [place] [address] Primary Oncologist Medical Oncology 03/10/18 Benjy Charlton DO [address] [place] [address] Insurance Assigned Provider 08/06/20 09/07/23 documented as of this encounter Additional Source Comments The information contained in this document represents components of the legal health record. It is not the complete legal health record.[facility]
--- OUTSIDE RECORDS SUMMARY | 2025-07-28 19:13 | XMS_ITS | Encounter Summary ---
Author Organization [facility] Address [address] [place] [address] Phone Care Team Providers Care Medical Resident Name Role Phone Benjy Charlton DO Primary Care Provider [phone] Jessica Lim MD Unavailable [phone] Benjy Charlton DO Unavailable Encounter Details Date Type Department Care Team (Late st Contact Info) Description 04/09/2023 Procedure Pass [address] [address] Social History Tobacco Use Types Packs/Day Years [...] (Late st Contact Info) Description 04/20/[address] [address] 04/11/2026 9:15 AM EDT Appointment [facility], [address] [address] Jessica Lim MD [address] [place] [address] 04/19/2026 10:00 AM EDT Office Visit [facility] at [address] [address] Jessica Lim MD [address] [place] [address] documented as of this encounter Visit Diagnoses Not on filedocumented in this encounter Care Teams Medical Resident Relationship Specialty Start Date End Date Benjy Charlton DO PCP - General 08/15/17 Jessica Lim MD [address] [place] [address] Primary Oncologist Medical Oncology 03/10/18 Benjy Charlton DO [address] [place] [address] Insurance Assigned Provider 08/06/20 09/07/23 documented as of this encounter Additional Source Comments The information contained in this document represents components of the legal health record. It is not the complete legal health record.[facility]
--- OUTSIDE RECORDS SUMMARY | 2025-07-28 19:13 | XMS_ITS | Encounter Summary ---
Author Organization [facility] Address [address] [facility] [address] [place] [address] Phone Care Team Providers Care Salesperson [employer] Furnish[employer] Name Role Phone Benjy Charlton DO Primary Care Provider [phone] Jessica Lim MD Unavailable Encounter Details Date Type Department Care Team (Late st Contact Info) Description 07/30/2024 Procedure Pass [address] [address] Social History Tobacco Use Types Packs/Day Years [...] st Contact Info) Description 04/20/2025 Procedure Pass [address] [address] 04/11/2026 9:15 AM EDT Appointment [address] [place] [address] Jessica Lim MD [address] [place] [address] [email or web address] 04/19/2026 10:00 AM EDT Office Visit [facility] at [address] [address] Jessica Lim MD [address] [place] [address] documented as of this encounter Visit Diagnoses Not on filedocumented in this encounter Care Teams Salesperson [employer] Furn[employer] Relationship Specialty Start Date End Date Benjy Charlton DO PCP - General 08/15/17 Jessica Lim MD [address] [place] [address] Primary Oncologist Medical Oncology 03/10/18 documented as of this encounter Additional Source Comments The information contained in this document represents components of the legal health record. It is not the complete legal health record.[facility]
--- OUTSIDE RECORDS SUMMARY | 2025-07-28 19:13 | XMS_ITS | Encounter Summary ---
Author Organization [facility] Address [address] [address] Phone Care Team Providers Care Supervising Nurse Name Role Phone Benjy Charlton DO Primary Care Provider [phone] Jessica Lim MD Unavailable [phone] Benjy Charlton DO Unavailable Encounter Details Date Type Department Care Team (Late Contact Info) Description 09/02/2019 Ancillary Orders Virtual Department [address] [place] [address] Benjy Charlton DO [address] [place] [address] [place] [address] Breast screening Social History Tobacco Use Types Packs/Day Years Used Date Smoking Tobacco: Never Smokeless Tobacco: Never Comments No Sex and Gender Information Value Date Recorded Sex Assigned at Not on file Legal Sex Female 10:05 PM EDT Gender Identity Not on file Sexual Orientation Not on file documented as of this encounter Plan of Treatment Upcoming Encounters Date Type Department Care Team (Late Contact Info) Description 04/20/2025 Procedure Pass [address] [address] 04/11/2026 9:15 AM EDT Appointment [address] [address] Jessica Lim MD 30 [place] [address] 04/19/2026 10:00 AM EDT Office Visit [facility] [address] [place] [address] Jessica Lim MD 30 [place] [address] [email or web address] documented as of this encounter Visit Diagnoses Diagnosis Breast screening Breast screening, unspecified documented in this encounter Additional Health Concerns Infection Onset Date Last Indicated Resolved Time CoV-Exposed Comment:Recent close contact 11/07/2020 11/07/2020 11/21/2020 1:24 AM EST documented as of this encounter Care Teams Supervising Nurse Relationship Specialty Start Date End Date Benjy Charlton DO PCP - General 08/15/17 Jessica Lim MD [address] [place] [address] [email or web address] Primary Oncologist Medical Oncology 03/10/18 Benjy Charlton DO [address] [place] [address] Insurance Assigned Provider 08/06/20 09/07/23 documented as of this encounter Additional Source Comments The information contained in this document represents components of the legal health record. It is not the complete legal health record.[facility]
--- OUTSIDE RECORDS SUMMARY | 2025-07-28 19:13 | XMS_ITS | Encounter Summary ---
Author Organization [facility] Address [address] [place] [address] Phone Care Team Providers Care Corset Fitter Name Role Phone Benjy Charlton DO Primary Care Provider [phone] Jessica Lim MD Unavailable [phone] Benjy Charlton DO Unavailable Encounter Details Date Type Department Care Team (Late st Contact Info) Description 04/07/2021 Procedure Pass [address] [address] Social History Tobacco Use Types Packs/Day Years [...] st Contact Info) Description 04/20/2025 Procedure Pass [address] [address] 04/11/2026 9:15 AM EDT Appointment [address] [address] Jessica Lim MD [address] [place] [address] [email or web address] 04/19/2026 10:00 AM EDT Office Visit [facility] at [address] [address] Jessica Lim MD 30 [place] [address] documented as of this encounter Visit Diagnoses Not on filedocumented in this encounter Care Teams Corset Fitter Relationship Specialty Start Date End Date Benjy Charlton DO PCP - General 08/15/17 Jessica Lim MD [address] [place] [address] Primary Oncologist Medical Oncology 03/10/18 Benjy Charlton DO [address] [place] [address] Insurance Assigned Provider 08/06/20 09/07/23 documented as of this encounter Additional Source Comments The information contained in this document represents components of the legal health record. It is not the complete legal health record.[facility]
--- OUTSIDE RECORDS SUMMARY | 2025-07-28 19:13 | XMS_ITS | Encounter Summary ---
Author Organization [facility] Address [address] [address] Phone Care Team Providers Care Gate Tender Name Role Phone Benjy Charlton DO Primary Care Provider [phone] Jessica Lim MD Unavailable [phone] Benjy Charlton DO Unavailable Reason for Referral * - Closed Specialty Diagnoses / Procedures Referred By Rasheed estrada Referred To Contact Diagnoses Atypical chest pain Procedures Stress Test Exercise Benjy Charlton DO Phone: tel: fax: [email or web address] Referral ID Status Reason Start Date Expiration Date Visits Re quested Visits Authorized [id number] Closed 01/19/2019 01/19/2020 1 1 Encounter Details Date Type Department Care Team (Late st Contact Info) Description 01/19/2019 Ancillary Orders Virtual Department 30 [place] [address] Benjy Charlton DO [address] [place] [address] [email or web address] Atypical chest pain Social History Tobacco Use Types Packs/Day Years [...] Contact Info) Description 04/20/2025 Procedure Pass [address] [address] 04/11/2026 9:15 AM EDT Appointment [address] [address] Jessica Lim MD [address] [place] [address] [email or web address] 04/19/2026 10:00 AM EDT Office Visit [facility] at [address] [address] Jessica Lim MD [address] [place] [address] documented as of this encounter Results * Stress Test Exercise (01/26/2019 11:35 AM EDT) Max BP Systolic 168 mmHg [facility] Max BP Diastolic 82 mmHg [facility] Max HR 164 BPM [facility] Resting HR 108 BPM [facility] Resting BP Systolic 140 mmHg [facility] Resting BP Diastolic 80 mmHg [facility] Peak METS 7.0 METS [facility] Peak HR 164 BPM [facility] Peak BP Systolic 166 mmHg [facility] Peak BP Diastolic 80 mmHg [facility] Anatomical Region Laterality Modality Heart Other 01/26/2019 10:0 2 AM EDT 01/26/2019 10:32 AM EDT Narrative 01/27/2019 1:02 AM EDT There was no electrocardiographic evidence of myocardial ischemia at a diagnostic workload. Clinically, this is low risk study. Stress Findings There was no evidence of myocardial ischemia at a diagnostic workload. Clinically, this is a low risk study. Response to Stress The patient exercised for minutes seconds, achieving 7.0 METS at peak exercise. Baseline blood pressure was 140/80 mmHg, and baseline heart rate was 108 bpm. Peak blood pressure was 166/80 mmHg. The patient achieved a peak heart rate of 164 bpm, which is% of their maximum predicted heart rate. Rate pressure product was [address]. Patient exercised for 4:59 minutes on a standard Ludwin protocol achieving 7.0 METs and 109% MPHR (164 BPM). The test was terminated due to shortness of breath. SUMMARY: 1. RESTING ECG: Normal sinus with non specific ST/T wave abnormailities 2. EXERCISE ECG: No ischemic ECG changes with exercise 3. SYMPTOMS: No chest pain, limiting shortness of breath. 4. PHYSIOLOGY: Pt met target heart rate in less than one minute of exercise. Resting heart rate of 108 bpm lourdes to a max heart rate of 164 bpm, this represents 109% MPHR. Resting BP of 140/80 lourdes to a max BP of 168/82. Vital signs stable and returned to baseline prior to discharge from the lab. Achieved 7.0 METs consistent with good functional capacity for age. 5. ARRHYTHMIA: Occasional isolated PVCs CONCLUSION: Normal ECG portion of exercise stress test without ECG changes suggestive of ischemia and without symptoms concerning for angina. Pt met target heart rate very early into exercise. Good functional capacity. Kelley treadmill score of +5 indicating low cardiac risk See attached stress report for full details. Jovanni Theodore [facility]- with Dr. eDvine. us Benjy Charlton DO CV STRESS ORDERABLES Final Resul t documented in this encounter Visit Diagnoses Diagnosis Atypical chest pain Other chest pain Atypical chest pain Other chest pain documented in this encounter Additional Health Concerns Infection Onset Date Last Indicated Resolved Time CoV-Exposed Comment:Recent close contact 11/07/2020 11/07/2020 11/21/2020 1:24 AM EST documented as of this encounter Care Teams Gate Tender Relationship Specialty Start Date End Date Benjy Charlton DO [email or web address] PCP - General 08/15/17 Jessica Lim MD [address] [place] [phone] [email or web address] Primary Oncologist Medical Oncology 03/10/18 Benjy Charlton DO [address] [place] [address] [email or web address] Insurance Assigned Provider 08/06/20 09/07/23 documented as of this encounter Additional Source Comments The information contained in this document represents components of the legal health record. It is not the complete legal health record.[facility]
--- OUTSIDE RECORDS SUMMARY | 2025-07-28 19:13 | XMS_ITS | Encounter Summary ---
Author Organization [facility] Address [address] [address] Phone Care Team Providers Care Fx Artist Name Role Phone Benjy Charlton DO Primary Care Provider [phone] Jessica Lim MD Unavailable [phone] Encounter Details Date Type Department Care Team (Late st Contact Info) Description 07/28/2024 Ancillary Orders [facility] - [facility] [address] [place] [address] Benjy Charlton DO [address] [facility] [place] [address] [place] [address] [email or web address] Right shoulder pain, unspecified chronicity (Primary Dx) Social History Tobacco Use Types Packs/Day Years Used Date Smoking Tobacco: Never Smokeless Tobacco: Never Alcohol Use Standard Drinks/Week Comments Yes 0 (1 standard drink = 0.6 oz pur e alcohol) occ Education Answer Date Recorded Are you interested in more education? Not on mnose e 02/22/2023 Are you concerned about learning? [...] Contact Info) Description 04/20/2025 Procedure [address] [address] 04/11/2026 9:15 AM EDT Appointment [address] [address] Jessica Lim MD [address] [place] [address] 04/19/2026 10:00 AM EDT Office Visit [facility] at [address] [address] Jessica Lim MD [address] [place] [address] documented as of this encounter Results * XR SHOULDER 2 VIEWS (RIGHT) (07/28/2024 12:36 PM EDT) Anatomical Region Laterality Modality Shoulder Right Computed Radiogr aphy 07/29/2024 9:48 AM EDT Impressions 07/29/2024 9:50 AM EDT No fracture or dislocation. Degenerative changes in the AC joint and lesser extent glenohumeral joint. Narrative 07/29/2024 9:50 AM EDT XR SHOULDER 2 OR MORE VIEWS (RIGHT) Referring clinician's provided indication for this examination in Epic: Pain COMPARISON: None FINDINGS: No acute fracture or dislocation. Significant degenerative changes of the AC joint with inferiorly directed osteophyte off the acromion process at the AC joint. Mild degenerative changes of the glenohumeral joint. Mild cystic change in the humeral head. Diffuse bony demineralization. Procedure Note Geovany Squires MD - 07/29/2024 XR SHOULDER 2 OR MORE VIEWS (RIGHT) Referring clinician's provided indication for this examination in [facility]:Pain COMPARISON: None FINDINGS: No acute fracture or dislocation. Significant degenerative changes of theAC joint with inferiorly directed osteophyte off the acromion process atthe AC joint. Mild degenerative changes of the glenohumeral joint. Mildcystic change in the humeral head. Diffuse bony demineralization. IMPRESSION: No fracture or dislocation. Degenerative changes in the AC joint and lesser extent glenohumeraljoint. Benjy Charlton DO IMG XR UPPER EXTREMITY Final Res ult documented in this encounter Visit Diagnoses Diagnosis Right shoulder pain, unspecified chronicity- Primary Right shoulder pain, unspecified chronicity documented in this encounter Care Teams Fx Artist Relationship Specialty Start Date End Date Benjy Charlton DO [email or web address] PCP - General 08/15/17 Jessica Lim MD [address] [place] [address] [email or web address] Primary Oncologist Medical Oncology 03/10/18 documented as of this encounter Additional Source Comments The information contained in this document represents components of the legal health record. It is not the complete legal health record.[facility]
--- OUTSIDE RECORDS SUMMARY | 2025-07-28 19:13 | XMS_ITS | Encounter Summary ---
Author Organization [facility] Address 399 [facility] [address] [place] [address] Phone Care Team Providers Care Candy Dipper Name Role Phone ZulemaBenjy rodgers Primary Care Provider [phone] Jessica Lim MD Unavailable [phone] Zulemaana maria Benjy Horta DO Unavailable Encounter Details Date Type Department Care Team (Latest Contact Info) Description 11/07/2020 Transcribe Orders Virtual Department [address] [place] [address] Joanne Roa PA [address] [facility] [place] [address] Exposure to SARS-associated coronavirus (Primary Dx) Social History Tobacco Use Types [...] st Contact Info) Description 04/20/2025 Procedure Pass [address] [address] 04/11/2026 9:15 AM EDT Appointment [address] [address] Jessica Lim MD [address] [place] [address] 04/19/2026 10:00 AM EDT Office Visit [facility] at [address] [address] Jessica Lim MD 30 [place] [address] documented as of this encounter Results * COVID-19 PCR Order (11/08/2020 11:32 AM EST) COVID Testing Status Specimen received in analyzing lab. [facility] Symptomatic? NO [facility] Other 11/08/2020 11:3 2 AM EST 11/08/2020 1:44 PM EST Joanne GREGORIO [facility] HOWARD PRASAD Final Result Performing Organization Address City/State/[facility] Co de Phone Number [facility] [address] [place] [address] [facility] [address] [place] [address] documented in this encounter Visit Diagnoses Diagnosis Exposure to SARS-associated coronavirus- Primary documented in this encounter Additional Health Concerns Infection Onset Date Last Indicated Resolved Time CoV-Exposed Comment:Recent close contact 11/07/2020 11/07/2020 11/21/2020 1:24 AM EST documented as of this encounter Care Teams Candy Dipper Relationship Specialty Start Date End Date Benjy Charlton DO PCP - General 08/15/17 Jessica Lim MD [address] [place] [address] Primary Oncologist Medical Oncology 03/10/18 Benjy Charlton DO [address] [place] [address] [email or web address] Insurance Assigned Provider 08/06/20 09/07/23 documented as of this encounter Additional Source Comments The information contained in this document represents components of the legal health record. It is not the complete legal health record.[facility]
--- OUTSIDE RECORDS SUMMARY | 2025-07-28 19:13 | XMS_ITS | Encounter Summary ---
Author Organization [facility] Address 399 [facility] [address] [place] [address] Phone Care Team Providers Care Assessment Expert Name Role Phone ZulemaBenjy rodgers Primary Care Provider [phone] Jessica Lim MD Unavailable [phone] Zulemaana maria Benjy Horta DO Unavailable Encounter Details Date Type Department Care Team (Latest Contact Info) Description 11/05/2017 Transcribe Orders [facility] [address] [place] [address] Kathy Austin MD [address] [facility] [address] [place] [address] [email or web address] Myxedema heart disease (Primary Dx); Hypothyroidism, unspecified type Social History Tobacco Use Types Packs/Day Years Used Date Smoking Tobacco: Never Smokeless Tobacco: Never Comments Unknown Sex and Gender Information Value Date Recorded Sex Assigned at Not on file Legal Sex Female 10:05 PM EDT Gender Identity Not on file Sexual Orientation Not on file documented as of this encounter Plan of Treatment Upcoming Encounters Date Type Department Care Team (Late st Contact Info) Description 04/20/2025 Procedure Pass [address] [address] 04/11/2026 9:15 AM EDT Appointment [address] [address] Jessica Lim MD 30 [place], [place] [phone] [email or web address] 04/19/2026 10:00 AM EDT Office Visit [facility] at [address] [address] Jessica Lim MD [address] [place] [address] [email or web address] documented as of this encounter Results * Free T4 (11/05/2017 10:19 AM EST) FREE T4 1.6 0.9 - 1.7 ng/dL [facility] Blood 11/05/2017 10:1 9 AM EST 11/05/2017 10:26 AM EST us Provider Not In System PhD LAB BLOOD ORDERABLES Final Result Performing Organization Address City/[facility]/ZIP Co de Phone Number [address] [address] * TSH (11/05/2017 10:19 AM EST) TSH 2.30 0.27 - 4.20 uIU/mL [facility] Blood 11/05/2017 10:1 9 AM EST 11/05/2017 10:26 AM EST us Provider Not In System PhD LAB BLOOD ORDERABLES Final Result Performing Organization Address City/[facility] Co de Phone Number [address] [address] documented in this encounter Visit Diagnoses Diagnosis Myxedema heart disease- Primary Unspecified hypothyroidism Hypothyroidism, unspecified type documented in this encounter Additional Health Concerns Infection Onset Date Last Indicated Resolved Time CoV-Exposed Comment:Recent close contact 11/07/2020 11/07/2020 11/21/2020 1:24 AM EST documented as of this encounter Care Teams Assessment Expert Relationship Specialty Start Date End Date Benjy Charlton DO PCP - General 08/15/17 Jessica Lim MD [address] [place] [address] [email or web address] Primary Oncologist Medical Oncology 03/10/18 Benjy Charlton DO [address] [place] [address] [email or web address] Insurance Assigned Provider 08/06/20 09/07/23 documented as of this encounter Additional Source Comments The information contained in this document represents components of the legal health record. It is not the complete legal health record.[facility]
--- OUTSIDE RECORDS SUMMARY | 2025-07-28 19:13 | XMS_ITS | Encounter Summary ---
Author Organization [facility] Address [address] [facility] [address] [place] [address] Phone Care Team Providers Care Ad Trafficker Name Role Phone Benjy Charlton DO Primary Care Provider [phone] Jessica Lim MD Unavailable [phone] Reason for Referral * MRI/CAT Scan - Closed Specialty Diagnoses / Procedures Referred By Contac t Referred To Contact Radiology Diagnoses Right shoulder pain, unspecified chronicity Procedures MRI Shoulder (Right) Benjy Charlton DO Phone: tel: fax: [email or web address] Referral ID Status Reason Start Date Expiration Date Visits Re quested Visits Authorized [id number] Closed 07/30/2024 07/30/2025 1 1 Encounter Details Date Type Department Care Team (Late st Contact Info) Description 07/30/2024 Transcribe Orders Virtual Department [address] [place] [address] Benjy Charlton DO [address] [facility] [place] [address] [place] [address] [email or web address] Right shoulder pain, unspecified chronicity (Primary Dx) [...] st Contact Info) Description 04/20/2025 Procedure Pass [address] [address] 04/11/2026 9:15 AM EDT Appointment [address] [address] Jessica Lim MD [address] [place] [address] 04/19/2026 10:00 AM EDT Office Visit [facility] at [address] [address] Jessica Lim MD [address] [place] [phone] [email or web address] documented as of this encounter Results * MRI SHOULDER WITHOUT CONTRAST (RIGHT) (09/14/2024 1:58 PM EST) Anatomical Region Laterality Modality Shoulder Right Magnetic Resonan ce 09/15/2024 3:23 PM EST Impressions 09/15/2024 3:37 PM EST 1. Full-thickness full-width retracted supraspinatus tear. 2. Infraspinatus tendinosis with partial thickness articular sided tearing along the anterior fibers, and subscapularis tendinosis with focal low-grade interstitial tears. 3. Marked tendinosis of the long head of the biceps with partial tearing. 4. Moderate acromioclavicular and moderate glenohumeral degenerative changes. Broad subacromial spur. 5. Glenohumeral effusion with synovitis which decompresses into the subacromial and subcoracoid bursae through the full-thickness rotator cuff tear. Narrative 09/15/2024 3:37 PM EST MRI SHOULDER WITHOUT CONTRAST (RIGHT) Referring clinician's provided indication for this examination in [facility]: Outside Radiology Order; right shoulder pain TECHNIQUE: Multi-sequence, multi-planar MRI of the shoulder without intravenous contrast. COMPARISON: None FINDINGS: Some sequences are motion degraded which limits evaluation. Coracoacromial Arch: Moderate hypertrophic acromioclavicular degenerative changes. Broad subacromial spur. Fluid in the subacromial/subdeltoid bursa and subcoracoid bursa is contiguous with the glenohumeral joint fluid through the full-thickness rotator cuff tear. Acromiohumeral interval narrowing. Rotator Cuff: Full-thickness fullwidth supraspinatus tear with 3.6 cm of tendon retraction to the level of the glenohumeral joint. Infraspinatus tendinosis with partial thickness articular sided tearing along the anterior fibers noting small amount of delamination along the myotendinous junction. Advanced subscapularis tendinosis with focal low-grade interstitial tears at the footprint attachment. Mild global muscular atrophy but no focal muscular atrophy. Teres minor is intact. Glenoid Labrum and Biceps Tendon: Labral degeneration and nondisplaced tearing. Marked long head of the biceps tendinosis with partial tearing. Bones: Subcortical cystic changes and spurring in the humeral head. Glenohumeral Joint: Superior humeral head translation relative to the glenoid resulting in acromiohumeral narrowing. Full-thickness cartilage defects along the superior and superomedial humeral head. Additional partial-thickness cartilage loss throughout the remainder of the joint. Glenohumeral effusion with mild synovitis. Small marginal spurs. Procedure Note Tico Green MD - 09/15/2024 MRI SHOULDER WITHOUT CONTRAST (RIGHT) Referring clinician's provided indication for this examination in [facility]:Outside Radiology Order; right shoulder pain TECHNIQUE: Multi-sequence, multi-planar MRI of the shoulder withoutintravenous contrast. COMPARISON: None FINDINGS: Some sequences are motion degraded which limits evaluation. Coracoacromial Arch: Moderate hypertrophic acromioclavicular degenerativechanges. Broad subacromial spur. Fluid in the subacromial/subdeltoid bursaand subcoracoid bursa is contiguous with the glenohumeral joint fluidthrough the full-thickness rotator cuff tear. Acromiohumeral intervalnarrowing. Rotator Cuff: Full-thickness fullwidth supraspinatus tear with 3.6 cm oftendon retraction to the level of the glenohumeral joint. Infraspinatustendinosis with partial thickness articular sided tearing along theanterior fibers noting small amount of delamination along the myotendinousjunction. Advanced subscapularis tendinosis with focal low-gradeinterstitial tears at the footprint attachment. Mild global muscularatrophy but no focal muscular atrophy. Teres minor is intact. Glenoid Labrum and Biceps Tendon: Labral degeneration and nondisplacedtearing. Marked long head of the biceps tendinosis with partial tearing. Bones: Subcortical cystic changes and spurring in the humeral head. Glenohumeral Joint: Superior humeral head translation relative to theglenoid resulting in acromiohumeral narrowing. Full-thickness cartilagedefects along the superior and superomedial humeral head. Additionalpartial-thickness cartilage loss throughout the remainder of the joint.Glenohumeral effusion with mild synovitis. Small marginal spurs. IMPRESSION: 1. Full-thickness full-width retracted supraspinatus tear. 2. Infraspinatus tendinosis with partial thickness articular sided tearingalong the anterior fibers, and subscapularis tendinosis with focallow-grade interstitial tears. 3. Marked tendinosis of the long head of the biceps with partialtearing. 4. Moderate acromioclavicular and moderate glenohumeral degenerativechanges. Broad subacromial spur. 5. Glenohumeral effusion with synovitis which decompresses into thesubacromial and subcoracoid bursae through the full-thickness rotator cufftear. Benjy Charlton DO IMG MR EXTREMITY Final Result documented in this encounter Visit Diagnoses Diagnosis Right shoulder pain, unspecified chronicity- Primary Right shoulder pain, unspecified chronicity documented in this encounter Care Teams Ad Trafficker Relationship Specialty Start Date End Date Benjy Charlton DO [email or web address] PCP - General 08/15/17 Jessica Lim MD [address] [place] [address] [email or web address] Primary Oncologist Medical Oncology 03/10/18 documented as of this encounter Additional Source Comments The information contained in this document represents components of the legal health record. It is not the complete legal health record.[facility]
--- OUTSIDE RECORDS SUMMARY | 2025-07-28 19:14 | XMS_ITS | Clinical Summary ---
Author Organization [facility] Address [address] [facility] [address] [place] [address] Phone Care Team Providers Care Upholsterer Assembly Line Name Role Phone Benjy Charlton DO Primary Care Provider [phone] Jessica Lim MD Unavailable [phone] Allergies Active Allergy Reactions Criticality Noted Date Comments Etodolac Hives High 04/07/2021 Nitrofurantoin Monohyd/M-Cryst Rash,Hives Low 03/06 Oxycodone-Acetaminophen Rash Low 03/06/2013 Penicillin Rash Low 03/06/2013 Shellfish Derived 04/07/2021 Medications levothyroxine (SYNTHROID, LEVOTHROID) 50 MCG tablet 75 mcg. 75mg Active propranolol (INDERAL) 60 MG immediate release tablet Activ e cholecalciferol 10 mcg (400 unit) chewable tablet Take by mouth. Active simvastatin (ZOCOR) 10 MG tablet Take 10 mg by mouth nightly at bedtime. Active levothyroxine (SYNTHROID, LEVOTHROID) 75 MCG tablet 04/09/2022 Active Active Problems Patient Care Coordination No te Formatting of this note migh t be different from the original. HEIGHT 168.1cm 04/09/23 Problem Noted Date Diagnosed Date Bunion 01/01/2018 Essential hypertension 01/01/2018 Hypercholesterolemia 01/01/2018 Hypothyroidism 01/01/2018 Impaired fasting glucose 01/01/2018 Osteopenia 01/01/2018 Malignant neoplasm of lower- outer quadrant of left breast of female, estrogen receptor positive 09/10/2017 Cancer Staging:Clinical stage from 01/26/2013:Stage IA(T1c, N0, M0) - Signed by Jessica Lim MD on 09/16/2017 Immunizations Immunization Administration Dates Next Due COVID-19 (Pre-08/19) Pfizer Vaccine, mRNA, PF 06/08/2022,02/06/2021,01/21/2021,2020 Family History Medical History Relation Comments Breast cancer Neg Hx Social History Tobacco Use Types Packs/Day Years Used Date Smoking Tobacco: Never Smokeless Tobacco: Never Tobacco Cessation:Counseling Given: Not Answered Alcohol Use Standard Drinks/Week Comments Yes 0 [...] on file Sexual Orientation Not on file Last Filed Vital Signs Vital Sign Reading Time Taken Comments Blood Pressure 154/82 04/20/2025 1:11 PM EDT Pulse 71 04/20/2025 1:11 PM EDT Temperature 36.1 C (96.9 F) 04/10/2024 10:21 AM EDT Respiratory Rate 18 05/01/2022 1:50 PM EDT Oxygen Saturation 100% 04/20/2025 1:11 PM EDT Inhaled Oxygen Concentration - - Weight 81.7 kg (180 lb 1.6 oz) 04/20/2025 1:09 P M EDT Height 168.1 cm (5' 6.18 ) 04/20/2025 1:09 PM ED T Body Mass Index 28.91 04/20/2025 1:09 PM EDT Plan of Treatment Upcoming Encounters Date Type Department Care Team (Late st Contact Info) Description 04/20/2025 Procedure Pass [address] [address] 04/11/2026 9:15 AM EDT Appointment [place] [address] [place] [address] Jessica Lim MD [address] [place] [email or web address] 04/19/2026 10:00 AM EDT Office Visit [facility] at [address] [address] Jessica Lim MD [address] [place] [phone] [email or web address] Health Maintenance Due Date Last Done Comments Adult Td,Tdap Booster 1950 DEPRESSION SCREENING 1960 HEPATITIS C SCREENING 1966 PNEUMOCOCCAL VACCINES (50+ years) (1 of 2 - PCV) 1967 ZOSTER VACCINES (1 of 2) 1967 OSTEOPOROSIS SCREENING INITIAL (ONE-TIME) 2013 RSV VACCINE (1 - 1-dose 75+ series) 2023 INFLUENZA VACCINE (#1) 2025 COVID-19 VACCINE (2024- season) 2025 06/08/2022, 06/08/2022, 02/06/2021, Additional history exists BLOOD PRESSURE 10/20/2025 04/20/2025 TSH LEVEL 12/29/2025 12/29/2024, 06/28, 08/26/2018, Additional history exists LIPID PANEL 12/29/2029 12/29/2024, 07/15/2024 SMOKING STATUS SCREENING (Once After 26 Yrs) Completed 04/09/2025 HEPATITIS A VACCINES Aged Out No long er eligible based on patient's age to complete this topic HIB VACCINES Aged Out No longer eligi ble based on patient's age to complete this topic MENINGOCOCCAL VACCINES (ACWY) Aged Out No longer eligible based on patient's age to complete this topic MENINGOCOCCAL VACCINES (B) Aged Out N o longer eligible based on patient's age to complete this topic Medical Devices Not on file Procedures Procedure Name Priority Date/Time Associated Diagnosis Comments LIPID PANEL Routine 12/29/2024 7:56 AM EST Hyperlipidemia, unspecified hyperlipidemia type TSH WITH REFLEX Routine 12/29/2024 7:56 AM EST Hypothyroidism, unspecified type from Last 3 Months or Most Recently Relevant to Health Maintenance Results * (ABNORMAL) TSH with reflex (12/29/2024 7:56 AM EST) TSH 8.61(H) 0.27 - 4.20 uIU/mL [facility] Blood 12/29/2024 7:56 AM EST 12/29/2024 7:59 AM EST us Benjy A Bigda DO LAB BLOOD ORDERABLES Final Resul t Performing Organization Address City/[facility] Co de Phone Number [address] [address] * (ABNORMAL) Lipid panel (12/29/2024 7:56 AM EST) HDL 83 mg/dL [facility] Comment: Interpretation <40 mg/dL: Low HDL cholesterol (major risk factor for CHD) Greater than or equal to 60 mg/dL: High HDL cholesterol ( negative risk factor for CHD) HDL - cholesterol is affected by a number of factors, e.g. smoking, excerise, hormones, sex and age. CHOLESTEROL 225 0 - 240 mg/dL [facility] TRIGLYCERIDES 73 30 - 160 mg/dL [facility] LDL 127 50 - 129 mg/dL [facility] Comment: LDL levels in terms of risk for coronary heart disease: <100 mg/dL: Optimal 100-129 mg/dL: Near or above optimal 130-159 mg/dL: Borderline high 160-189 mg/dL: High >190 mg/dL: Very High CARDIAC RISK RATIO 2.7(L) 3.3 - 4.4 [facility] Blood 12/29/2024 7:56 AM EST 12/29/2024 7:59 AM EST us Benjy A Bigda DO LAB BLOOD ORDERABLES Final Resul t [address] [address] from Last 3 Months or Most Recently Relevant to Health Maintenance Insurance MEDICARE PART A & B MEDICARE ENHANCE SUPPLEMENT MEDICARE PART A & B [facility] MEDICARE ENHANCE SUPPLEMENT MEDICARE PART A & B [facility] MEDICARE ENHANCE SUPPLEMENT MEDICARE PART A & B [facility] MEDICARE ENHANCE SUPPLEMENT MEDICARE PART A & B [facility] MEDICARE ENHANCE SUPPLEMENT Member Subscriber Plan / Payer ( fective 2023-) Name:Rigo Crawford Relation to Subscriber:Self Name:RIGO CRAWFORD Payer ID:[id number] ([facility] Type:O Address: [facility] [id number] [place] [address] MEDICARE PART A & B [facility] MEDICARE ENHANCE SUPPLEMENT MEDICARE PART A & B [facility] MEDICARE ENHANCE SUPPLEMENT MEDICARE PART A & B MEDICARE ENHANCE SUPPLEMENT MEDICARE PART A & B [facility] MEDICARE ENHANCE SUPPLEMENT Care Teams Upholsterer Assembly Line Relationship Specialty Start Date End Date Benjy Charlton DO [email or web address] PCP - General 08/15/17 Jessica Lim MD [address] [place] [phone] [email or web address] Primary Oncologist Medical Oncology 03/10/18 Additional Source Comments The information contained in this document represents components of the legal health record. It is not the complete legal health record.[facility]
[2025-07-28 19:38] LABS: Hematocrit 37.9 % (37.0-47.0); Hemoglobin 12.7 g/dl (12.0-16.0); Imm Gran Abs Auto 0.01 X10*3/uL (0.00-0.03); Imm Gran Pct Auto 0.2 % (0.0-0.4); Lymphocytes Absolute Auto 1.2 X10*3/uL (1.2-4.9); Mean Corpuscular HGB Conc 33.5 g/dl (31.0-35.0); Mean Corpuscular Hemoglobin 32.4 pg (27.0-33.0); Mean Corpuscular Volume 96.7 fL (80.0-98.0); NRBC Abs Auto 0.000 X10*3/uL (0.0-0.012); NRBC Pct Auto 0.0 /100WBC (0.0-0.2); Platelet Count 230 X10*3/uL (160-400); Red Blood Count 3.92 X10*6/uL (4.20-5.50); White Blood Count 5.0 X10*3/uL (4.8-10.8)
[2025-07-28 19:48] LABS: Alanine Aminotransferase 13 U/L (0-31); Albumin Level 4.4 g/dL (3.5-5.0); Alkaline Phosphatase 91 U/L (39-117); Anion Gap 11 (12-20); Aspartate Amino Transferase 25 U/L (5-31); Blood Urea Nitrogen 14 mg/dL (9-16); Calcium 9.2 mg/dL (8.4-10.2); Carbon Dioxide 27 mmol/L (22-29); Chloride 106 mmol/L (96-108); Cholesterol 195 mg/dL (<200); Estimated Glomerular Filt Rate 53; HDL Cholesterol 63 mg/dL (>40); Potassium 4.3 mmol/L (3.3-5.1); Sodium 140 mmol/L (135-145); Total Protein 6.8 g/dL (6.5-8.0); Triglycerides 84 mg/dL (<150)
[2025-07-28 20:48] LABS: Free T4 (Free Thyroxine) 1.35 ng/dL (0.71-1.85)
== END 2025-07-28 19:11 | disposition home or self-care (01) ==
LOC: HO.LNP 19:10
PROVIDERS: Visit Provider Internal Medicine
DX: Z00.00 Encounter for general adult medical examination without abnormal findings (principal); Z13.6 Encounter for screening for cardiovascular disorders; E03.9 Hypothyroidism, unspecified
CPT/HCPCS: 80053; 80061; 84439; 84443; 85025